=== PATIENT | female | born 1970 | race Two or more races ===

== ENCOUNTER 2016-07-17 19:37 | Emergency (ER) | payer OTHER ==
--- NOTE | ~2016-07-17 | CR127 ---
[facility] A Service of [facility] & [facility] RADIOLOGY TEXT RESULTS PATIENT: DOUGLAS BECK LOCATION: CFTX : 70 UNIT #: [id number] AGE: [address]: Martinez Wilson SEX: F ORDER DR: [id number] [facility] [address] [place], [place] [address] [id number] E MR#: [id number] Acc #: [id number] NAME: DOUGLAS BECK : 1970 SEX: F STUDY DATE/TIME: 07/17/2016 19:42 UNIT: CFTX ROOM: STUDY DESCRIPTION: CR Foot Complete Min 3 View Rt Attending Physician: Martinez Wilson P.A.-C. Ordering Physician: Martinez Wilson P.A.-C. Primary Care Physician: [facility] MEDICAL IMAGING REPORT This report is preliminary unless electronic signature is present EXAM Right foot, 3 views COMPARISON None INDICATIONS 46-year-old female with right foot pain after falling today. FINDINGS There is an os peroneum, a normal anatomic variant. There is moderate enthesopathy at the plantar fascial insertion of the calcaneus with mild enthesopathy at the Achilles attachment. Mild dorsal osteophyte formation of the navicular. IMPRESSION No acute fracture or dislocation of the right foot. Mild degenerative changes as described in the body report. Dictated by... Luther Montesinos M.D. THIS IS AN ELECTRONICALLY VERIFIED REPORT Luther Montesinos M.D. at 07/20/2016 3:56 PM Melania TD: 07/18/2016 08:17 JOB #: [id number] MEDICAL IMAGING REPORT Page 1 of 1 COPY
== END 2016-07-17 21:24 | disposition home or self-care (01) ==
LOC: CFTX 19:37
DX: S61.411A Laceration without foreign body of right hand, initial encounter (principal); S90.31XA Contusion of right foot, initial encounter; W25.XXXA Contact with sharp glass, initial encounter; Y92.009 Unspecified place in unspecified non-institutional (private) residence as the place of occurrence of the external cause
CPT/HCPCS: 73630; 90471; 90715; 99283